=== PATIENT | female | born 1970 | race Hispanic/Latino ===

== ENCOUNTER 2019-05-25 03:49 | Inpatient (IN) | payer OTHER ==
[~2019-05-25] VITALS: Ht 149.9 cm; Wt 74.8 kg
[2019-05-25] MEDS ORDERED: CLONIDINE HCL 0.1 MG TABLET ONE (04:19)
[2019-05-25 04:40] LABS: BASOPHILS % (AUTO) 0.5 % (0.0-5.0); EOSINOPHILS % (AUTO) 0.6 % (0.0-8.0); HEMATOCRIT 38.7 % (36-48); MEAN CORPUSCULAR HEMOGLOBIN 25.3 pg (27.0-33.0); MEAN CORPUSCULAR HGB CONC 33.4 g/dL (32.0-36.0); MEAN CORPUSCULAR VOLUME 75.8 fL (79-99); MONOCYTES % (AUTO) 4.9 % (3.0-13.0); PLATELET COUNT (AUTO) 267 K/uL (130-400); RED BLOOD CELL COUNT(AUTO) 5.11 MIL/uL (4.00-5.50); RED CELL DISTRIBUTION WIDTH 15.8 % (11.0-15.5); WHITE BLOOD COUNT (AUTO) 12.4 K/uL (4.8-10.8)
[2019-05-25 04:49] LABS: CREATININE 0.7 mg/dL (0.5-1.5); POTASSIUM 3.2 mmol/L (3.5-5.1)
[2019-05-25] MEDS ORDERED: HYDRALAZINE HCL 20 MG/ML VIAL ONE (05:42)
[2019-05-25] MEDS ORDERED: POTASSIUM CHLORIDE 20 MEQ ERTAB PO PRN (06:30)
[2019-05-25] MEDS ORDERED: POTASSIUM CHLORIDE 10% ELIXIR 20 MEQ/15 ML UDCUP PO PRN (06:30)
[2019-05-25] MEDS ORDERED: POTASSIUM CHLORIDE 20MEQ/100ML 100 ML IV PRN (06:30)
[2019-05-25] MEDS ORDERED: ACETAMINOPHEN-CODEINE 300/30MG TAB PO PRN (06:30)
[2019-05-25] MEDS ORDERED: HYDRALAZINE HCL 20 MG/ML VIAL IV PRN (06:30)
[2019-05-25] MEDS ORDERED: LIDOCAINE HCL-MPF 1% 2ML VIAL IVP PRN (06:30)
[2019-05-25] MEDS ORDERED: IOHEXOL-350 75 ML VIAL IV ONE (06:53)
[2019-05-25 07:03] LABS: CHOLESTEROL 224 mg/dL (<200); HDL CHOLESTEROL 62 mg/dL (35-85); HEMOGLOBIN A1C 7.3 % (4.0-6.0); LDL DIRECT 133 mg/dL (0-99); TRIGLYCERIDES 76 mg/dL (30-200)
[2019-05-25] MEDS ORDERED: POTASSIUM CHLORIDE 20 MEQ ERTAB PO ONE (08:14)
[2019-05-25 08:55] VITALS: BP 134/82
[2019-05-25] MEDS ORDERED: LISINOPRIL 10 MG TABLET PO SCH (09:00)
[2019-05-25] MEDS ORDERED: LISINOPRIL 5 MG TABLET PO SCH (09:00)
[2019-05-25] MEDS: ASPIRIN 325 MG TABLET PO SCH (09:59)
[2019-05-25] MEDS: METOPROLOL TARTRATE 25 MG TAB PO SCH ×2 (10:00→20:26)
[2019-05-25] MEDS: FAMOTIDINE 20MG TAB 20 MG TAB PO SCH ×2 (10:00→20:26)
[2019-05-25] MEDS: ENOXAPARIN SODIUM 40 MG/0.4 ML SYRINGE SQ SCH (10:35)
[2019-05-25] MEDS: INSULIN HUMULIN R 100 UNIT/ML 3ML SQ SCH ×3 (11:30→21:00)
[2019-05-25 11:47] VITALS: BP 132/75
--- NOTE | 2019-05-25 16:20 | NUR ---
Diet Education RD Provided diet education. Pt with new knowledge of Diabetes. Pt states MD and RN have counseled on Diabetes lifestyle implications. RD reviewed reference materials and handouts with Pt. Pt verbalized understanding. AURA encouraged Pt to notify as questions or concerns arise. RD to continue to monitor. Addendum: 05/25/19 at [address] RD Amended: Links added.
[2019-05-25 17:01] VITALS: BP 135/79
--- NOTE | 2019-05-25 17:14 | NUR ---
DCP CM met with pt discussed dc plans. Pt is independent prior to admission, lives at home alone, mother lives close by. Denies any equipments/services. Pt feels safe to go back home, still drives, arranges own needs. DC plan to home once stable. CM to cont to follow up. Addendum: 05/25/19 at 1715 by DENISE BOYD LVN CM Amended: Links added.
[2019-05-25 19:22] VITALS: BP 157/86
[2019-05-25] MEDS: ATORVASTATIN CALCIUM 20 MG TABLET PO SCH (20:26)
[2019-05-26 00:07] VITALS: BP 129/75
[2019-05-26 04:12] VITALS: BP 160/95
[2019-05-26] MEDS: INSULIN HUMULIN R 100 UNIT/ML 3ML SQ SCH ×4 (06:08→21:00)
[2019-05-26 08:00] VITALS: BP 136/83
[2019-05-26] MEDS: ENOXAPARIN SODIUM 40 MG/0.4 ML SYRINGE SQ SCH (09:00)
[2019-05-26] MEDS: ASPIRIN 325 MG TABLET PO SCH (09:55)
[2019-05-26] MEDS: METOPROLOL TARTRATE 25 MG TAB PO SCH ×2 (09:55→19:41)
[2019-05-26] MEDS: FAMOTIDINE 20MG TAB 20 MG TAB PO SCH ×2 (09:55→19:41)
[2019-05-26] MEDS: LISINOPRIL 20 MG TABLET PO SCH (09:56)
[2019-05-26 11:00] VITALS: BP 145/84
[2019-05-26] MEDS ORDERED: POTASSIUM CHLORIDE 20 MEQ ERTAB PO SCH (12:15)
[2019-05-26 12:18] LABS: BASOPHILS % (AUTO) 1.3 % (0.0-5.0); EOSINOPHILS % (AUTO) 2.9 % (0.0-8.0); HEMATOCRIT 37.5 % (36-48); LYMPHOCYTES % (AUTO) 24.5 % (21.0-51.0); MEAN CORPUSCULAR HEMOGLOBIN 24.7 pg (27.0-33.0); MEAN CORPUSCULAR HGB CONC 31.7 g/dL (32.0-36.0); MEAN CORPUSCULAR VOLUME 77.9 fL (79-99); MONOCYTES % (AUTO) 5.8 % (3.0-13.0); NEUTROPHILS % (AUTO) 65.5 % (40.0-77.0); PLATELET COUNT (AUTO) 236 K/uL (130-400); RED BLOOD CELL COUNT(AUTO) 4.81 MIL/uL (4.00-5.50); RED CELL DISTRIBUTION WIDTH 16.1 % (11.0-15.5); WHITE BLOOD COUNT (AUTO) 11.6 K/uL (4.8-10.8)
[2019-05-26 12:31] LABS: CREATININE 0.9 mg/dL (0.5-1.5)
[2019-05-26 12:46] LABS: POTASSIUM 3.4 mmol/L (3.5-5.1)
[2019-05-26 16:00] VITALS: BP 136/70
[2019-05-26] MEDS: ATORVASTATIN CALCIUM 20 MG TABLET PO SCH (19:41)
[2019-05-26 21:16] VITALS: BP 146/83
[2019-05-27 00:12] VITALS: BP 139/81
[2019-05-27 04:17] LABS: APPEARANCE,URINE Clear (CLEAR); BILIRUBIN,URINE Negative (NEGATIVE); COLOR,URINE Yellow (YELLOW); GLUCOSE, URINE (UA) Negative (NEGATIVE); KETONES,URINE Negative (NEGATIVE); LEUKOCYTE ESTERASE ,URINE Negative (NEGATIVE); NITRATE,URINE Negative (NEGATIVE); OCCULT BLOOD,URINE Negative (NEGATIVE); PROTEIN,URINE Negative (NEGATIVE)
[2019-05-27 04:25] VITALS: BP 165/91
[2019-05-27] MEDS: INSULIN HUMULIN R 100 UNIT/ML 3ML SQ SCH ×4 (06:43→20:32)
[2019-05-27 08:39] VITALS: BP 127/77
[2019-05-27] MEDS: ENOXAPARIN SODIUM 40 MG/0.4 ML SYRINGE SQ SCH ×2 (09:00→10:08)
[2019-05-27 09:43] LABS: HEMATOCRIT 37.1 % (36-48); MEAN CORPUSCULAR HEMOGLOBIN 25.2 pg (27.0-33.0); MEAN CORPUSCULAR HGB CONC 32.9 g/dL (32.0-36.0); MEAN CORPUSCULAR VOLUME 76.7 fL (79-99); NUCLEATED RED BLOOD CELLS 0.1 % (0.0-0.19); PLATELET COUNT (AUTO) 227 K/uL (130-400); RED BLOOD CELL COUNT(AUTO) 4.84 MIL/uL (4.00-5.50); RED CELL DISTRIBUTION WIDTH 15.8 % (11.0-15.5); WHITE BLOOD COUNT (AUTO) 11.5 K/uL (4.8-10.8)
[2019-05-27] MEDS: FAMOTIDINE 20MG TAB 20 MG TAB PO SCH ×2 (10:06→20:32)
[2019-05-27] MEDS: ASPIRIN 325 MG TABLET PO SCH (10:06)
[2019-05-27] MEDS: METOPROLOL TARTRATE 25 MG TAB PO SCH ×2 (10:07→20:32)
[2019-05-27] MEDS: LISINOPRIL 20 MG TABLET PO SCH (10:07)
[2019-05-27 10:13] LABS: CREATININE 0.7 mg/dL (0.5-1.5); POTASSIUM 4.2 mmol/L (3.5-5.1)
[2019-05-27 11:00] VITALS: BP 134/68
[2019-05-27 16:00] VITALS: BP 142/86
[2019-05-27 19:12] VITALS: BP 142/81
[2019-05-27] MEDS: ATORVASTATIN CALCIUM 20 MG TABLET PO SCH (20:32)
[2019-05-28 00:22] VITALS: BP 149/88
[2019-05-28 04:12] VITALS: BP 159/87
[2019-05-28 05:16] LABS: BASOPHILS % (AUTO) 0.4 % (0.0-5.0); EOSINOPHILS % (AUTO) 2.5 % (0.0-8.0); HEMATOCRIT 38.8 % (36-48); LYMPHOCYTES % (AUTO) 21.3 % (21.0-51.0); MEAN CORPUSCULAR HGB CONC 32.3 g/dL (32.0-36.0); MEAN CORPUSCULAR VOLUME 77.6 fL (79-99); MONOCYTES % (AUTO) 5.5 % (3.0-13.0); NEUTROPHILS % (AUTO) 70.3 % (40.0-77.0); PLATELET COUNT (AUTO) 247 K/uL (130-400); RED CELL DISTRIBUTION WIDTH 15.7 % (11.0-15.5); WHITE BLOOD COUNT (AUTO) 11.8 K/uL (4.8-10.8)
[2019-05-28 05:23] LABS: CREATININE 0.8 mg/dL (0.5-1.5); POTASSIUM 3.7 mmol/L (3.5-5.1)
[2019-05-28] MEDS: INSULIN HUMULIN R 100 UNIT/ML 3ML SQ SCH ×3 (07:30→21:00)
[2019-05-28 08:00] VITALS: BP 153/89
[2019-05-28] MEDS: ENOXAPARIN SODIUM 40 MG/0.4 ML SYRINGE SQ SCH ×2 (09:00→10:10)
[2019-05-28] MEDS: ASPIRIN 325 MG TABLET PO SCH (10:10)
[2019-05-28] MEDS: LISINOPRIL 20 MG TABLET PO SCH (10:10)
[2019-05-28] MEDS: FAMOTIDINE 20MG TAB 20 MG TAB PO SCH ×2 (10:10→22:31)
[2019-05-28] MEDS: METOPROLOL TARTRATE 25 MG TAB PO SCH ×2 (10:10→22:31)
[2019-05-28 12:00] VITALS: BP 151/89
--- NOTE | 2019-05-28 13:49 | NUR ---
NG TUBE WAS PLACED AT THIS TIME PATIENT TOLERATED THE PROCEDURE WELL. WAITING FOR ABDOMINAL XRAY TO VERIFY THE PLACEMENT.
[2019-05-28 16:00] VITALS: BP 142/71
[2019-05-28 19:30] VITALS: BP 146/62
[2019-05-28] MEDS: ATORVASTATIN CALCIUM 20 MG TABLET PO SCH (22:31)
[2019-05-29] VITALS (7 sets, daily range): BP systolic 120–164; BP diastolic 57–89
[2019-05-29 05:29] LABS: HEMATOCRIT 40.1 % (36-48); MEAN CORPUSCULAR HEMOGLOBIN 24.7 pg (27.0-33.0); MEAN CORPUSCULAR HGB CONC 31.8 g/dL (32.0-36.0); MEAN CORPUSCULAR VOLUME 77.8 fL (79-99); PLATELET COUNT (AUTO) 263 K/uL (130-400); RED BLOOD CELL COUNT(AUTO) 5.16 MIL/uL (4.00-5.50); WHITE BLOOD COUNT (AUTO) 12.1 K/uL (4.8-10.8)
[2019-05-29 05:45] LABS: ALBUMIN 3.1 g/dL (3.5-5.0); BILIRUBIN,TOTAL 0.2 mg/dL (0.2-1.0); CREATININE 0.8 mg/dL (0.5-1.5); CRP QUANTITATIVE 8.4 mg/L (0.00-9.0); POTASSIUM 4.2 mmol/L (3.5-5.1); TOTAL PROTEIN, SERUM 7.7 g/dL (6.0-8.3)
[2019-05-29 05:46] LABS: BAND NEUTROPHILS % (MANUAL) 2 % (0-2); EOSINOPHILS % (MANUAL) 1 % (1-6); LYMPHOCYTES % (MANUAL) 22 % (22-44); MAN.DIFF COMMENT-IMPRESSION MANUAL DIFFERENTIAL; MONOCYTES % (MANUAL) 4 % (2-9); PLATELET MORPHOLOGY COMMENT ADEQUATE; SEGMENTED NEUTROPHILS % 71 % (40-70)
[2019-05-29] MEDS: INSULIN HUMULIN R 100 UNIT/ML 3ML SQ SCH ×4 (06:32→21:00)
[2019-05-29] MEDS: ENOXAPARIN SODIUM 40 MG/0.4 ML SYRINGE SQ SCH (09:00)
[2019-05-29] MEDS: ASPIRIN 325 MG TABLET PO SCH (09:34)
[2019-05-29] MEDS: FAMOTIDINE 20MG TAB 20 MG TAB PO SCH ×2 (09:34→21:33)
[2019-05-29] MEDS: LISINOPRIL 20 MG TABLET PO SCH (09:34)
[2019-05-29] MEDS: METOPROLOL TARTRATE 25 MG TAB PO SCH ×2 (09:34→21:33)
[2019-05-29] MEDS: ATORVASTATIN CALCIUM 20 MG TABLET PO SCH (21:33)
[2019-05-30] VITALS: BP 127/74
[2019-05-30 04:00] VITALS: BP 117/73
[2019-05-30 04:46] LABS: HEMATOCRIT 40.6 % (36-48); MEAN CORPUSCULAR HEMOGLOBIN 24.6 pg (27.0-33.0); MEAN CORPUSCULAR HGB CONC 31.8 g/dL (32.0-36.0); MEAN CORPUSCULAR VOLUME 77.3 fL (79-99); NUCLEATED RED BLOOD CELLS 0.1 % (0.0-0.19); PLATELET COUNT (AUTO) 242 K/uL (130-400); RED BLOOD CELL COUNT(AUTO) 5.26 MIL/uL (4.00-5.50); RED CELL DISTRIBUTION WIDTH 15.9 % (11.0-15.5); WHITE BLOOD COUNT (AUTO) 11.8 K/uL (4.8-10.8)
[2019-05-30 05:25] LABS: ALBUMIN 3.2 g/dL (3.5-5.0); BILIRUBIN,TOTAL 0.5 mg/dL (0.2-1.0); CREATININE 0.8 mg/dL (0.5-1.5); POTASSIUM 4.1 mmol/L (3.5-5.1); TOTAL PROTEIN, SERUM 7.6 g/dL (6.0-8.3)
[2019-05-30] MEDS: INSULIN HUMULIN R 100 UNIT/ML 3ML SQ SCH ×2 (06:41→11:30)
[2019-05-30 08:00] VITALS: BP 143/76
[2019-05-30] MEDS ORDERED: ATOR20TA65 PO (08:47)
[2019-05-30] MEDS ORDERED: ASPI-1012 PO (08:47)
[2019-05-30] MEDS ORDERED: LISI-613 PO (08:47)
[2019-05-30] MEDS ORDERED: METO25 PO (08:47)
[2019-05-30] MEDS ORDERED: METF-444 PO (08:48)
[2019-05-30] MEDS: ENOXAPARIN SODIUM 40 MG/0.4 ML SYRINGE SQ SCH (09:00)
[2019-05-30] MEDS: LISINOPRIL 20 MG TABLET PO SCH (09:34)
[2019-05-30] MEDS: FAMOTIDINE 20MG TAB 20 MG TAB PO SCH (09:34)
[2019-05-30] MEDS: ASPIRIN 325 MG TABLET PO SCH (09:34)
[2019-05-30] MEDS: METOPROLOL TARTRATE 25 MG TAB PO SCH (09:34)
[2019-05-30 12:00] VITALS: BP 167/89
--- NOTE | 2019-05-30 15:32 | NUR ---
DISCHARGE PATIENT GIVEN DISCHARGE INSTRUCTIONS VIA TEACH BACK. 20G PIV TO LFA DISCONTINUED, TIP INTACT. TELE PACK REMOVED AND RETURNED TO TELEMETRY. RX GIVEN FOR BP MEDS AND DIABETES. PATIENT SCHEDULED TO FOLLOW UP WITH DR. HIDALGO AND MAY FOLLOW UP WITH DR. IBANEZ IN 6 TO 8 WEEKS IF NEEDED. PATIENT STABLE AT THIS TIME. PATIENT AND PATIENT'S MOTHER ACCOMPANIED BY STEFFEN NORRIS TO [facility].
== END 2019-05-30 15:29 | disposition home or self-care (01) | DRG 305 ==
LOC: EDH 03:49 → OBSVTOIN 03:50 → EDHIP 03:50 → 3AH 08:00
PROVIDERS: ADMIT Hospitalist; ATTEND Hospitalist
DX: I16.0 Hypertensive urgency (principal); D72.829 Elevated white blood cell count, unspecified; E11.9 Type 2 diabetes mellitus without complications; E78.2 Mixed hyperlipidemia; E87.6 Hypokalemia; I10 Essential (primary) hypertension; I44.0 Atrioventricular block, first degree; Z91.14 Patient's other noncompliance with medication regimen; Z90.710 Acquired absence of both cervix and uterus; Z88.8 Allergy status to other drugs, medicaments and biological substances; Z86.73 Personal history of transient ischemic attack (TIA), and cerebral infarction without residual deficits; Z83.3 Family history of diabetes mellitus; Z82.3 Family history of stroke; Z82.49 Family history of ischemic heart disease and other diseases of the circulatory system; Z82.5 Family history of asthma and other chronic lower respiratory diseases; Z82.0 Family history of epilepsy and other diseases of the nervous system
CPT/HCPCS: 36415; 70450; 70496; 70498; 80048; 80053; 80061; 81003; 82948; 83036; 85025; 85027; 86140; 93005; 93880; C8929; G0378; J0360; J1650; J1815; Q9967

== ENCOUNTER 2019-06-01 17:24 | Observation (INO) | payer OTHER ==
[~2019-06-01] VITALS: Ht 144.8 cm; Wt 75.8 kg
[~2019-06-01 17:24] MED LIST: ASPI-1012 PO; ATOR20TA65 PO; LISI-613 PO; METF-444 PO; METO25 PO
[2019-06-01 18:01] LABS: BASOPHILS % (AUTO) 0.4 % (0.0-5.0); EOSINOPHILS % (AUTO) 1.7 % (0.0-8.0); HEMATOCRIT 38.7 % (36-48); LYMPHOCYTES % (AUTO) 19.2 % (21.0-51.0); MEAN CORPUSCULAR HEMOGLOBIN 24.7 pg (27.0-33.0); MEAN CORPUSCULAR HGB CONC 32.2 g/dL (32.0-36.0); MEAN CORPUSCULAR VOLUME 76.8 fL (79-99); MONOCYTES % (AUTO) 5.2 % (3.0-13.0); NEUTROPHILS % (AUTO) 73.5 % (40.0-77.0); PLATELET COUNT (AUTO) 257 K/uL (130-400); RED BLOOD CELL COUNT(AUTO) 5.04 MIL/uL (4.00-5.50); RED CELL DISTRIBUTION WIDTH 15.3 % (11.0-15.5); WHITE BLOOD COUNT (AUTO) 12.5 K/uL (4.8-10.8)
[2019-06-01 18:15] LABS: CREATININE 0.9 mg/dL (0.5-1.5); POTASSIUM 3.8 mmol/L (3.5-5.1)
[2019-06-01 18:17] LABS: INR 0.95 (0.85-1.15); PARTIAL THROMBOPLASTIN TIME 33.7 SEC (26.3-35.5)
[2019-06-01 18:21] LABS: ALBUMIN 3.6 g/dL (3.5-5.0); BILIRUBIN,TOTAL 0.3 mg/dL (0.2-1.0); TOTAL PROTEIN, SERUM 8.3 g/dL (6.0-8.3)
[2019-06-01 19:00] LABS: APPEARANCE,URINE Clear (CLEAR); BILIRUBIN,URINE Negative (NEGATIVE); COLOR,URINE Yellow (YELLOW); GLUCOSE, URINE (UA) Negative (NEGATIVE); KETONES,URINE Negative (NEGATIVE); LEUKOCYTE ESTERASE ,URINE Negative (NEGATIVE); NITRATE,URINE Negative (NEGATIVE); OCCULT BLOOD,URINE Negative (NEGATIVE); PH,URINE 5.5 (5.0-8.0); PROTEIN,URINE Negative (NEGATIVE); UROBILINOGEN,URINE 0.2 mg/dL (0.2-1.0)
[2019-06-01 19:08] LABS: AMPHET/METH SCREEN,URINE NEGATIVE (NEGATIVE); BARBITURATE SCREEN, URINE NEGATIVE (NEGATIVE); BENZODIAZEPINES SCREEN,URINE NEGATIVE (NEGATIVE); CANNABINOID SCREEN,URINE NEGATIVE (NEGATIVE); COCAINE SCREEN,URINE NEGATIVE (NEGATIVE); OPIATE SCREEN,URINE NEGATIVE (NEGATIVE); PHENCYCLIDINE SCREEN,URINE NEGATIVE (NEGATIVE)
[2019-06-01] MEDS ORDERED: ACETAMINOPHEN 325 MG TAB PO PRN (19:45)
[2019-06-01] MEDS ORDERED: HYDROCODONE/ACETAMINOPHEN 5/325 MG TAB PO PRN (19:45)
[2019-06-01] MEDS ORDERED: ONDANSETRON HCL 4 MG/2 ML VIAL IVP PRN (19:45)
[2019-06-01] MEDS ORDERED: ALPRAZOLAM 0.25 MG TABLET PO PRN (20:00)
[2019-06-01] MEDS ORDERED: IPRATROPIUM/ALBUTEROL SULFATE 3 ML SOLUTION IH PRN (20:00)
[2019-06-01] MEDS ORDERED: HYDRALAZINE HCL 20 MG/ML VIAL IV PRN (20:00)
[2019-06-01 20:30] VITALS: BP 156/79
[2019-06-01 23:30] VITALS: BP 123/72
[2019-06-02 03:30] VITALS: BP 133/69
[2019-06-02 08:00] VITALS: BP 136/81
[2019-06-02 11:56] VITALS: BP 145/68
--- NOTE | 2019-06-02 12:03 | NUR ---
PATIENT REFUSED DOSE OF INSULIN AT NOON STATES SHE WILL TAKE HOME MEDS SINCE SHE IS BEING D.C HOME, DR. APPLE AWARE STATES OKAY.
--- NOTE | 2019-06-02 15:15 | NUR ---
PT D/C HOME USING TEACH BACK TECHNIQUE RE; FOLLOW UP WITH DR. IBANEZ IN 1-2 WEEKS CALL AT PHONE # [phone]. IF NUMBNESS TO ONE SIDE OF BODY OR FACE CALL 911. IF HAVING SHORTNESS OF BREATH OR CHEST PAIN THAT DOES NOT RESOLVE WITH REST CALL 911. CONTINUE ALL CURRENT HOME MEDS. ECHO AND COROTID STUDY WILL BE PRINTED AND A COPY PROVIDED TO YOU. IV OUT INTACT, NO BLEEDING, AAOX3, IN NO DISTRESS, STRONG AND ABLE TO AMBULATE.
[2019-06-02] MEDS ORDERED: METFORMIN HCL 500 MG TABLET PO SCH (16:30)
[2019-06-02] MEDS ORDERED: METOPROLOL TARTRATE 25 MG TAB PO SCH (21:00)
[2019-06-02] MEDS ORDERED: ATORVASTATIN CALCIUM 40 MG TABLET PO SCH (21:00)
[2019-06-03] MEDS ORDERED: LISINOPRIL 20 MG TABLET PO SCH (09:00)
[2019-06-03] MEDS ORDERED: ASPIRIN 81MG TAB.CHEW PO SCH (09:00)
== END 2019-06-02 15:30 | disposition home or self-care (01) ==
LOC: EDH 17:24 → EDHIP 17:25 → 3AH 19:41
PROVIDERS: ADMIT Internal Medicine Critical Care Medicine; ATTEND Internal Medicine Critical Care Medicine
DX: R20.0 Anesthesia of skin (principal); E11.9 Type 2 diabetes mellitus without complications; E78.5 Hyperlipidemia, unspecified; G43.909 Migraine, unspecified, not intractable, without status migrainosus; I10 Essential (primary) hypertension; Z86.73 Personal history of transient ischemic attack (TIA), and cerebral infarction without residual deficits; Z79.899 Other long term (current) drug therapy; Z79.01 Long term (current) use of anticoagulants
CPT/HCPCS: 36415; 70450; 70551; 71045; 80053; 80305; 81003; 82550; 82948 ×3; 83721; 84484; 85025; 85610; 85730; 93005; 94664; 99284; A4510; G0378 ×19

== ENCOUNTER 2021-08-03 22:11 | Inpatient (IN) | payer OTHER ==
[~2021-08-03] VITALS: Ht 144.8 cm; Wt 78.0 kg
[~2021-08-03 22:11] MED LIST changes: -LISI-613 PO; +LISI20TA24 PO
[2021-08-03] MEDS ORDERED: HYDRALAZINE 20MG/ML VIAL IV STA (23:19)
[2021-08-03] MEDS ORDERED: ALPRAZOLAM 0.25 MG TABLET PO STA (23:19)
[2021-08-03] MEDS ORDERED: ONDANSETRON 4MG INJ IVP ONE (23:30)
[2021-08-03 23:38] LABS: BASOPHILS % (AUTO) 0.4 % (0.0-5.0); EOSINOPHILS % (AUTO) 3.5 % (0.0-8.0); HEMATOCRIT 41.9 % (36-48); MEAN CORPUSCULAR HEMOGLOBIN 23.5 pg (27.0-33.0); MEAN CORPUSCULAR HGB CONC 31.5 g/dL (32.0-36.0); MEAN CORPUSCULAR VOLUME 74.7 fL (79-99); MONOCYTES % (AUTO) 5.4 % (3.0-13.0); NEUTROPHILS % (AUTO) 66.2 % (40.0-77.0); PLATELET COUNT (AUTO) 265 K/uL (130-400); RED BLOOD CELL COUNT(AUTO) 5.61 MIL/uL (4.00-5.50); RED CELL DISTRIBUTION WIDTH 16.5 % (11.0-15.5); WHITE BLOOD COUNT (AUTO) 9.6 K/uL (4.8-10.8)
[2021-08-03 23:51] LABS: CREATININE 0.8 mg/dL (0.5-1.5); POTASSIUM 3.8 mmol/L (3.5-5.1)
[2021-08-03 23:55] LABS: ALBUMIN 3.4 g/dL (3.5-5.0); BILIRUBIN,TOTAL 0.2 mg/dL (0.2-1.0); TOTAL PROTEIN, SERUM 8.5 g/dL (6.0-8.3)
[2021-08-04 00:01] LABS: B-TYPE NATRIURETIC PEPTIDE 59 pg/mL (0-100)
[2021-08-04] MEDS ORDERED: 0.9%NACL 1000ML 1,000 ML IV ONE (00:30)
[2021-08-04] MEDS ORDERED: HYDRALAZINE 20MG/ML VIAL IV ONE (01:30)
[2021-08-04 01:38] LABS: APPEARANCE,URINE Clear (CLEAR); BILIRUBIN,URINE Negative (NEGATIVE); COLOR,URINE Yellow (YELLOW); GLUCOSE, URINE (UA) >=1000 mg/dL (NEGATIVE); KETONES,URINE Negative (NEGATIVE); LEUKOCYTE ESTERASE ,URINE Negative (NEGATIVE); NITRATE,URINE Negative (NEGATIVE); OCCULT BLOOD,URINE Trace (NEGATIVE); PROTEIN,URINE Negative (NEGATIVE); UROBILINOGEN,URINE 0.2 mg/dL (0.2-1.0)
[2021-08-04 01:46] LABS: AMPHET/METH SCREEN,URINE NEGATIVE (NEGATIVE); BARBITURATE SCREEN, URINE NEGATIVE (NEGATIVE); BENZODIAZEPINES SCREEN,URINE POSITIVE (NEGATIVE); CANNABINOID SCREEN,URINE NEGATIVE (NEGATIVE); COCAINE SCREEN,URINE NEGATIVE (NEGATIVE); OPIATE SCREEN,URINE NEGATIVE (NEGATIVE); PHENCYCLIDINE SCREEN,URINE NEGATIVE (NEGATIVE)
[2021-08-04 01:55] LABS: WBC,URINE 0-1 /HPF (0-1)
[2021-08-04 01:56] LABS: BACTERIA,URINE Rare /HPF (None Seen); SQUAMOUS EPITHELIAL CELL,UR Few /HPF (0-2)
[2021-08-04] MEDS ORDERED: LISI20TA24 PO (02:25)
[2021-08-04] MEDS ORDERED: AEC81 PO (02:25)
[2021-08-04] MEDS ORDERED: ALPR-409 PO (02:25)
[2021-08-04] MEDS ORDERED: ALPRAZOLAM 0.25 MG TABLET PO PRN (05:30)
[2021-08-04] MEDS ORDERED: TRAM50TA4 PO (06:24)
[2021-08-04] MEDS ORDERED: TRAMADOL HCL 50 MG TABLET PO PRN (06:30)
[2021-08-04] MEDS: HYDRALAZINE 20MG/ML VIAL IV PRN ×2 (06:35→15:47)
[2021-08-04] MEDS: INSULIN HUMULIN R 100 UNIT/ML 3ML SQ SCH ×4 (06:51→21:50)
[2021-08-04] MEDS ORDERED: IOHEXOL-350 75 ML VIAL IV ONE (07:16)
[2021-08-04] MEDS: ENOXAPARIN SODIUM 40 MG/0.4 ML SYRINGE SQ SCH (08:18)
[2021-08-04] MEDS: ASPIRIN 81 MG EC TAB PO SCH (08:18)
[2021-08-04 08:52] LABS: HEMATOCRIT 37.8 % (36-48); MEAN CORPUSCULAR HEMOGLOBIN 23.4 pg (27.0-33.0); MEAN CORPUSCULAR HGB CONC 31.2 g/dL (32.0-36.0); RED BLOOD CELL COUNT(AUTO) 5.04 MIL/uL (4.00-5.50); RED CELL DISTRIBUTION WIDTH 16.5 % (11.0-15.5); WHITE BLOOD COUNT (AUTO) 10.8 K/uL (4.8-10.8)
[2021-08-04] MEDS ORDERED: GLUCAGON 1MG KIT 1 MG ML IM PRN (09:00)
[2021-08-04] MEDS ORDERED: MAGNESIUM 2GM PREMIX 50ML 50 ML IV PRN (09:00)
[2021-08-04] MEDS ORDERED: DEXTROSE 50%-WATER 50 ML DISP.SYRIN IV PRN (09:00)
[2021-08-04] MEDS ORDERED: LISINOPRIL 20 MG TABLET PO SCH (09:00)
[2021-08-04 09:01] LABS: HEMOGLOBIN A1C 8.8 % (4.0-6.0)
[2021-08-04 09:06] LABS: ALBUMIN 3.1 g/dL (3.5-5.0); BILIRUBIN,TOTAL 0.1 mg/dL (0.2-1.0); CREATININE 0.7 mg/dL (0.5-1.5); TOTAL PROTEIN, SERUM 7.4 g/dL (6.0-8.3)
[2021-08-04] MEDS ORDERED: LIDOCAINE HCL-MPF 1% 2ML VIAL IV PRN (10:30)
[2021-08-04] MEDS ORDERED: POTASSIUM CHLORIDE 10% ELIXIR 20 MEQ/15 ML UDCUP PO PRN (10:30)
[2021-08-04] MEDS ORDERED: KCL 20 MEQ ERTAB PO PRN (10:30)
[2021-08-04] MEDS ORDERED: POTASSIUM CHLORIDE 20MEQ/100ML 100 ML IV PRN (10:30)
[2021-08-04] MEDS ORDERED: GADOTERATE MEGLUMINE 10 MMOL/20 ML VIAL IV ONE (13:05)
[2021-08-04] MEDS ORDERED: ATORVASTATIN 40 MG TABLET PO SCH (21:00)
[2021-08-04] MEDS: LISINOPRIL 20 MG TABLET PO SCH (21:44)
[2021-08-04] MEDS: INSULIN GLARGINE 100 UNITS/ML 10 ML VIAL SQ SCH (21:50)
[2021-08-04 23:05] VITALS: BP 164/93
[2021-08-05] MEDS: HYDRALAZINE 20MG/ML VIAL IV PRN (03:44)
[2021-08-05 03:57] VITALS: BP 198/95
[2021-08-05 04:20] LABS: HEMATOCRIT 39.5 % (36-48); MEAN CORPUSCULAR HEMOGLOBIN 23.3 pg (27.0-33.0); MEAN CORPUSCULAR HGB CONC 31.4 g/dL (32.0-36.0); MEAN CORPUSCULAR VOLUME 74.2 fL (79-99); RED BLOOD CELL COUNT(AUTO) 5.32 MIL/uL (4.00-5.50); RED CELL DISTRIBUTION WIDTH 16.8 % (11.0-15.5); WHITE BLOOD COUNT (AUTO) 10.9 K/uL (4.8-10.8)
[2021-08-05 04:51] LABS: CREATININE 0.8 mg/dL (0.5-1.5); POTASSIUM 3.7 mmol/L (3.5-5.1)
[2021-08-05] MEDS: INSULIN GLARGINE 100 UNITS/ML 10 ML VIAL SQ SCH (06:57)
[2021-08-05] MEDS: INSULIN HUMULIN R 100 UNIT/ML 3ML SQ SCH (06:58)
[2021-08-05 08:00] VITALS: BP 149/74
[2021-08-05] MEDS ORDERED: METF-444 PO (08:33)
[2021-08-05] MEDS ORDERED: LISI40TA9 PO (08:33)
[2021-08-05] MEDS: ASPIRIN 81 MG EC TAB PO SCH (10:40)
[2021-08-05] MEDS: ENOXAPARIN SODIUM 40 MG/0.4 ML SYRINGE SQ SCH (10:40)
[2021-08-05] MEDS: LISINOPRIL 20 MG TABLET PO SCH (10:40)
== END 2021-08-05 12:15 | disposition home or self-care (01) | DRG 305 ==
LOC: EDH 22:11 → EDHIP 22:12 → 4BH 08-04 22:48
PROVIDERS: ADMIT Internal Medicine Pulmonary Disease; ATTEND Internal Medicine Pulmonary Disease
DX: I10 Essential (primary) hypertension (principal); E11.65 Type 2 diabetes mellitus with hyperglycemia; E78.00 Pure hypercholesterolemia, unspecified; F41.9 Anxiety disorder, unspecified; E66.01 Morbid (severe) obesity due to excess calories; E87.6 Hypokalemia; Z68.38 Body mass index [BMI] 38.0-38.9, adult; Z88.2 Allergy status to sulfonamides; Z88.8 Allergy status to other drugs, medicaments and biological substances; Z79.4 Long term (current) use of insulin; Z79.82 Long term (current) use of aspirin; Z79.84 Long term (current) use of oral hypoglycemic drugs; Z79.899 Other long term (current) drug therapy; Z98.891 History of uterine scar from previous surgery; Z90.49 Acquired absence of other specified parts of digestive tract; Z90.710 Acquired absence of both cervix and uterus; Z91.14 Patient's other noncompliance with medication regimen
CPT/HCPCS: 36415; 70450; 70496; 70498; 70553; 71045; 80048; 80053; 80061; 80305; 81001; 82550; 82948; 83036; 83880; 84132; 84145; 84443; 84484; 85025; 85027; 87040; 92522; 92610; 93005; G0378; J0360; J1650; J1815; J2405; J3480; J3490; J7030; Q9967

== ENCOUNTER 2022-06-13 18:42 | Emergency (ER) | payer OTHER ==
[~2022-06-13] VITALS: Ht 144.8 cm; Wt 81.6 kg
[~2022-06-13 18:42] MED LIST changes: +AEC81 PO; +ALPR-409 PO; -ASPI-1012 PO; -ATOR20TA65 PO; -LISI20TA24 PO; +LISI40TA9 PO; -METO25 PO; +TRAM50TA4 PO
[2022-06-13 19:17] LABS: BASOPHILS % (AUTO) 0.4 % (0.0-5.0); EOSINOPHILS % (AUTO) 1.2 % (0.0-8.0); HEMATOCRIT 44.7 % (36-48); LYMPHOCYTES % (AUTO) 24.1 % (21.0-51.0); MEAN CORPUSCULAR HEMOGLOBIN 23.5 pg (27.0-33.0); MEAN CORPUSCULAR HGB CONC 31.5 g/dL (32.0-36.0); MEAN CORPUSCULAR VOLUME 74.6 fL (79-99); MONOCYTES % (AUTO) 4.5 % (3.0-13.0); NEUTROPHILS % (AUTO) 69.3 % (40.0-77.0); PLATELET COUNT (AUTO) 262 K/uL (130-400); RED BLOOD CELL COUNT(AUTO) 5.99 MIL/uL (4.00-5.50); RED CELL DISTRIBUTION WIDTH 15.9 % (11.0-15.5); WHITE BLOOD COUNT (AUTO) 9.9 K/uL (4.8-10.8)
[2022-06-13 19:18] LABS: APPEARANCE,URINE CLOUDY (CLEAR); BILIRUBIN,URINE SMALL (NEGATIVE); COLOR,URINE YELLOW (YELLOW); GLUCOSE, URINE (UA) >=1000 mg/dL (NEGATIVE); KETONES,URINE 15 mg/dL (NEGATIVE); LEUKOCYTE ESTERASE ,URINE NEGATIVE (NEGATIVE); NITRATE,URINE NEGATIVE (NEGATIVE); OCCULT BLOOD,URINE LARGE (NEGATIVE); PROTEIN,URINE 30 mg/dL (NEGATIVE); UROBILINOGEN,URINE 0.2 mg/dL (0.2-1.0)
[2022-06-13 19:28] LABS: BACTERIA,URINE Few /HPF (None Seen); MUCUS,URINE Many LPF (None Seen); RBC,URINE 51-100 /HPF (0-1); SQUAMOUS EPITHELIAL CELL,UR Many /HPF (0-2)
[2022-06-13 19:34] LABS: ALBUMIN 3.9 g/dL (3.5-5.0); CREATININE 0.8 mg/dL (0.5-1.5); TOTAL PROTEIN, SERUM 8.6 g/dL (6.0-8.3)
[2022-06-13] MEDS ORDERED: KETOROLAC 15MG/ML VIAL (15MG/ML) ONE (19:43)
[2022-06-13] MEDS ORDERED: TAMSULOSIN HCL 0.4 MG CAP.ER.24H ONE (19:43)
[2022-06-13] MEDS ORDERED: 0.9% NACL 500ML IV.SOLN 500 ML IV ONE ×2 (19:43→20:00)
[2022-06-13 20:00] VITALS: BP 180/89
[2022-06-13] MEDS ORDERED: TAMSULOSIN HCL 0.4 MG CAP.ER.24H PO SCH (20:00)
[2022-06-13] MEDS ORDERED: KETOROLAC 15MG/ML VIAL (15MG/ML) IV ONE (20:00)
[2022-06-13] MEDS ORDERED: IBUP-2070 PO (21:28)
[2022-06-13] MEDS ORDERED: ACET-2079 PO (21:28)
== END 2022-06-13 21:43 | disposition home or self-care (01) ==
LOC: EDH 18:42
DX: N23 Unspecified renal colic (principal); E11.9 Type 2 diabetes mellitus without complications; E78.00 Pure hypercholesterolemia, unspecified; I10 Essential (primary) hypertension; Z88.1 Allergy status to other antibiotic agents; Z88.2 Allergy status to sulfonamides; Z79.1 Long term (current) use of non-steroidal anti-inflammatories (NSAID); Z79.82 Long term (current) use of aspirin; Z79.84 Long term (current) use of oral hypoglycemic drugs; Z79.899 Other long term (current) drug therapy; Z86.73 Personal history of transient ischemic attack (TIA), and cerebral infarction without residual deficits; Z90.49 Acquired absence of other specified parts of digestive tract
CPT/HCPCS: 99285; 74176; 96374; 96361; 84484; 80053; 85025; 81001; 36415; 93005; J7040; J1885

== ENCOUNTER 2022-11-28 14:23 | Emergency (ER) | payer OTHER ==
[~2022-11-28] VITALS: Ht 149.9 cm; Wt 81.2 kg
[~2022-11-28 14:23] MED LIST changes: +ACET-2079 PO; +IBUP-2070 PO
[2022-11-28] MEDS ORDERED: LACTATED RINGERS 1000ML 1,000 ML IV ONE (14:30)
[2022-11-28 14:37] LABS: BASOPHILS % (AUTO) 0.4 % (0.0-5.0); EOSINOPHILS % (AUTO) 5.2 % (0.0-8.0); HEMATOCRIT 40.3 % (36-48); LYMPHOCYTES % (AUTO) 28.2 % (21.0-51.0); MEAN CORPUSCULAR HGB CONC 31.5 g/dL (32.0-36.0); MONOCYTES % (AUTO) 4.6 % (3.0-13.0); NEUTROPHILS % (AUTO) 61.2 % (40.0-77.0); PLATELET COUNT (AUTO) 229 K/uL (130-400); RED CELL DISTRIBUTION WIDTH 14.6 % (11.0-15.5); WHITE BLOOD COUNT (AUTO) 8.9 K/uL (4.8-10.8)
[2022-11-28 14:49] LABS: INR 0.93 (0.85-1.15); PROTHROMBIN TIME 9.8 SEC (9.6-11.6)
[2022-11-28 14:50] LABS: PARTIAL THROMBOPLASTIN TIME 26.6 SEC (26.3-35.5)
[2022-11-28] MEDS ORDERED: CLONIDINE HCL 0.1 MG TABLET PO STA (14:50)
[2022-11-28 14:53] LABS: ALBUMIN 3.4 g/dL (3.5-5.0); CREATININE 0.6 mg/dL (0.5-1.5); TOTAL PROTEIN, SERUM 7.8 g/dL (6.0-8.3)
[2022-11-28 14:57] LABS: POTASSIUM 2.9 mmol/L (3.5-5.1)
[2022-11-28] MEDS ORDERED: POTASSIUM BICARB/CIT AC 25 MEQ TABLET.EFF PO STA (15:05)
[2022-11-28] MEDS ORDERED: POTASSIUM CHLORIDE 10MEQ/100ML 10 MEQ/100 ML ML IV SCH (15:05)
[2022-11-28 15:13] LABS: B-TYPE NATRIURETIC PEPTIDE 112 pg/mL (0-100)
[2022-11-28] MEDS ORDERED: MAGNESIUM 2GM PREMIX 50ML 50 ML IV SCH (15:30)
[2022-11-28 16:19] VITALS: BP 158/84
[2022-11-28 17:07] LABS: APPEARANCE,URINE CLOUDY (CLEAR); BILIRUBIN,URINE NEGATIVE (NEGATIVE); COLOR,URINE LIGHT-YELLOW (YELLOW); GLUCOSE, URINE (UA) 500 mg/dL (NEGATIVE); KETONES,URINE NEGATIVE (NEGATIVE); LEUKOCYTE ESTERASE ,URINE 250 Leu/uL (NEGATIVE); NITRATE,URINE NEGATIVE (NEGATIVE); OCCULT BLOOD,URINE NEGATIVE (NEGATIVE); PROTEIN,URINE 10 mg/dL (NEGATIVE); UROBILINOGEN,URINE 0.2 mg/dL (0.2-1.0)
[2022-11-28 17:14] LABS: AMPHET/METH SCREEN,URINE NEGATIVE (NEGATIVE); BACTERIA,URINE RARE /HPF (None Seen); BARBITURATE SCREEN, URINE NEGATIVE (NEGATIVE); BENZODIAZEPINES SCREEN,URINE NEGATIVE (NEGATIVE); CANNABINOID SCREEN,URINE NEGATIVE (NEGATIVE); COCAINE SCREEN,URINE NEGATIVE (NEGATIVE); MUCUS,URINE FEW LPF (None Seen); OPIATE SCREEN,URINE NEGATIVE (NEGATIVE); PHENCYCLIDINE SCREEN,URINE NEGATIVE (NEGATIVE); SQUAMOUS EPITHELIAL CELL,UR MOD /HPF (0-2)
[2022-11-28] MEDS ORDERED: CEPH500B PO (17:24)
== END 2022-11-28 17:34 | disposition home or self-care (01) ==
LOC: EDH 14:23
DX: E87.6 Hypokalemia (principal); E83.42 Hypomagnesemia; N39.0 Urinary tract infection, site not specified; E11.9 Type 2 diabetes mellitus without complications; I10 Essential (primary) hypertension; Z90.49 Acquired absence of other specified parts of digestive tract; Z86.73 Personal history of transient ischemic attack (TIA), and cerebral infarction without residual deficits; Z90.710 Acquired absence of both cervix and uterus; Z98.890 Other specified postprocedural states; Z79.899 Other long term (current) drug therapy; Z79.82 Long term (current) use of aspirin; Z79.84 Long term (current) use of oral hypoglycemic drugs; Z88.2 Allergy status to sulfonamides; Z88.1 Allergy status to other antibiotic agents
CPT/HCPCS: 99285; 96360; 70450; 71045; 82550; 83721; 83735; 84484; 80053; 83880; 80305; 85025; 85610; 85730; 87088; 82948; 36415; 93005; 81001; J3475; J7120